=== PATIENT | female | born 2000 | race African-American/Black ===

== ENCOUNTER 2019-02-25 01:15 | Emergency (ER) | payer SELFPAY ==
[~2019-02-25] VITALS: Ht 160 cm; Wt 90.7 kg
[2019-02-25 01:18] VITALS: BP 143/63
--- NOTE | 2019-02-25 01:52 | PHYS DOC ---
Past Medical History Past Medical History: Seizure, Other Additional Past Medical Histor: Syncope Past Surgical History: No Surgical History Alcohol Use: Occasionally Drug Use: Marijuana Adult General Chief Complaint Chief Complaint: INSECT BITE HPI HPI 18-year-old male presents to the emergency department with concern for bedbug bites. Patient has one lesion appreciated to the AC of her left arm, she has some irritation to her face. She complains of itching. Denies any fever, drainage, nausea, vomiting, headache, visual change, abdominal pain. He makes her symptoms worse, nothing makes her symptoms better All other ROS negative unless documented in HPI Review of Systems Review of Systems See Above Allergies Allergies Allergies Coded Allergies Type Severity Reaction Last Updated Verified No Known Drug Allergies 02/25/19 No Physical Exam Physical Exam See Above Constitutional: Well developed, well nourished, no acute distress, non-toxic appearance. [] Cardiovascular:Heart rate regular rhythm, no murmur [] Lungs & Thorax: Bilateral breath sounds clear to auscultation [] Skin: Warm, dry, no erythema, small bite appreciated to her leftt AC, some irritation appreciated to her face however no active drainage on exam Back: No tenderness, no CVA tenderness. [] Extremities: No tenderness, no cyanosis, no clubbing, ROM intact, no edema. [] Neurologic: Alert and oriented X 3, no focal deficits noted. [] Psychologic: Affect normal, judgement normal, mood normal. [] Current Patient Data Vital Signs Vital Signs Date Time Temp Pulse Resp B/P (MAP) Pulse Ox O2 Delivery O2 Flow Rate FiO2 02/25/19 01:18 99.1 76 14 143/63 (89) 97 Room Air 99.1 EKG EKG [] Radiology/Procedures Radiology/Procedures [] Course & Med Decision Making Course & Med Decision Making Pertinent Labs and Imaging studies reviewed. (See chart for details) []18-year-old male presents to the emergency department with concern for bedbug bites. Patient has one lesion appreciated to the AC of her left arm, she has some irritation to her face. She complains of itching. Denies any fever, drainage, nausea, vomiting, headache, visual change, abdominal pain. He makes her symptoms worse, nothing makes her symptoms better MSE discussed with patient ok to use over the counter benadryl cream/pills for itching Recommend washing clothes in hot water Recommend dc and follow up as outpatient Dragon Disclaimer Marnie Disclaimer This electronic medical record was generated, in whole or in part, using a voice recognition dictation system. Departure Departure Impression: Primary Impression: Insect bite Disposition: HOME, SELF-CARE Condition: STABLE Referrals: NO PCP (PCP) Patient Instructions: Insect Bite Problem Qualifiers Primary Impression: Insect bite Encounter type: initial encounter Site of insect bite: upper arm Laterality: left Qualified Codes: S40.862A - Insect bite (nonvenomous) of left upper arm, initial encounter; W57.XXXA - Bitten or stung by nonvenomous insect and other nonvenomous arthropods, initial encounter MARY LOU BIGGS MD Feb 25, 2019 01:52
== END 2019-02-25 01:26 | disposition home or self-care (01) ==
LOC: ER 01:15
DX: S40.862A Insect bite (nonvenomous) of left upper arm, initial encounter (principal); F12.90 Cannabis use, unspecified, uncomplicated; W57.XXXA Bitten or stung by nonvenomous insect and other nonvenomous arthropods, initial encounter; Y93.89 Activity, other specified; Y92.89 Other specified places as the place of occurrence of the external cause; Y99.8 Other external cause status
CPT/HCPCS: 99281